=== PATIENT | female | born 1950 | race Caucasian/White ===

== ENCOUNTER 2017-03-27 14:30 | Outpatient (CLI) | payer MEDICARE, BC ==
--- NOTE | 2017-03-27 15:51 | XRAY Report ---
TWO-VIEW CHEST: 03/27/2017 CLINICAL INDICATION: Cough. FINDINGS: Frontal and lateral views of the chest demonstrate a normal cardiac silhouette. There is a moderate hiatal hernia present. The lungs are clear. No effusion or pneumothorax is present. IMPRESSION: MODERATE HIATAL HERNIA. NO EVIDENCE OF ACUTE CARDIOPULMONARY DISEASE. JOB #: [id number] EXT JOB #:[id number]
--- NOTE | 2017-03-27 15:52 | XRAY Report ---
THREE-VIEW PARANASAL SINUSES: 03/27/2017 CLINICAL INDICATION: Cough. FINDINGS: AP, Elliott, lateral views of the paranasal sinuses demonstrate no evidence of mucosal thic kening or air-fluid levels. No osseous destruction is seen. The septum is midline. IMPRESSION: NO EVIDENCE OF SINUS DISEASE. JOB #: [id number] EXT JOB #:[id number]
== END 2017-03-27 14:31 | disposition home or self-care (01) ==
LOC: DI.S 14:30
PROVIDERS: ATTEND Internal Medicine
DX: R51 Headache (principal); R05 Cough; R53.83 Other fatigue; K44.9 Diaphragmatic hernia without obstruction or gangrene
CPT/HCPCS: 70220; 71020

== ENCOUNTER → 2017-03-27 | Outpatient (CLI) | payer BC, MEDICARE ==
[2017-03-27 19:21] LABS: BASOPHILS % (AUTO) 0.9 %; EOSINOPHILS # (AUTO) 0.2 10^3/uL (0.0-0.7); EOSINOPHILS % (AUTO) 4.6 %; HCT - HEMATOCRIT 42.8 % (37.0-47.0); HGB - HEMOGLOBIN 14.1 g/dL (12.0-16.0); LYMPHOCYTES # (AUTO) 1.1 10^3/uL (1.5-3.5); LYMPHOCYTES % (AUTO) 21.7 %; MEAN CORPUSCULAR HEMOGLOBIN 29.2 pg (27.0-31.0); MEAN CORPUSCULAR VOLUME 88.4 fL (81.0-99.0); MEAN PLATELET VOLUME 8.4 fL (7.9-10.8); MONOCYTES # (AUTO) 0.4 10^3/uL (0.0-1.0); NEUTROPHILS # (AUTO) 3.4 10^3/uL (1.5-6.6); NEUTROPHILS % (AUTO) 65.8 %; NUCLEATED RED BLOOD CELLS AUTO 0.2 /100WBC; RED BLOOD COUNT 4.84 10^6/uL (4.20-5.40); RED CELL DISTRIBUTION WIDTH 15.1 % (12.0-15.0); UNCORRECTED WHITE BLOOD COUNT 5.1 x10^3/uL; WHITE BLOOD COUNT 5.1 x10^3/uL (4.8-10.8)
[2017-03-27 20:10] LABS: ALBUMIN/GLOBULIN RATIO 1.5 (1.0-2.2); BILIRUBIN,TOTAL 0.5 mg/dL (0.2-1.0); BUN - BLOOD UREA NITROGEN 18 mg/dL (6-20); CALCIUM 8.9 mg/dL (8.5-10.3); CARBON DIOXIDE - CO2 24 mmol/L (21-32); CHLORIDE 108 mmol/L (101-111); CREATININE 0.8 mg/dL (0.4-1.0); GFR - MDRD 72 (>89); GLUCOSE 83 mg/dL (70-100); POTASSIUM 4.3 mmol/L (3.5-5.0); SODIUM 139 mmol/L (135-145); TOTAL PROTEIN 6.9 g/dL (6.7-8.2)
[2017-03-31 21:06] LABS: 18 KD (IGG) BAND NON-REACTIVE (()); 23 KD (IGG) BAND NON-REACTIVE (()); 28 KD (IGG) BAND NON-REACTIVE (()); 30 KD (IGG) BAND NON-REACTIVE (()); 39 KD (IGG) BAND NON-REACTIVE (()); 41 KD (IGG) BAND REACTIVE (()); 41 KD (IGM) BLOT NON-REACTIVE (()); 45 KD (IGG) BAND NON-REACTIVE (()); 58 KD (IGG) BAND NON-REACTIVE (()); 66 KD (IGG) BAND NON-REACTIVE (()); 93 KD (IGG) BAND NON-REACTIVE (())
== END ==
LOC: LAB.F 08:00
PROVIDERS: ATTEND Internal Medicine
DX: R51 Headache (principal); R53.83 Other fatigue; R05 Cough; T14.8 Other injury of unspecified body region; A69.20 Lyme disease, unspecified
CPT/HCPCS: 36415; 80053; 84443; 85025; 86140; 86617

== ENCOUNTER 2017-07-06 15:40 | Emergency (ER) | payer MEDICARE, BC ==
--- NOTE | 2017-07-06 16:41 | XRAY Preliminary Report ---
Exam: XR CHEST 2 VIEW PA/LAT IMPRESSION: No acute intrathoracic plain film abnormality. [facility] SITE ID: [id number]
--- NOTE | 2017-07-06 16:43 | XRAY Report ---
EXAM: CHEST RADIOGRAPHY EXAM DATE: 07/06/2017 04:23 PM. CLINICAL HISTORY: Rib pain COMPARISON: None. TECHNIQUE: 2 views. FINDINGS: Lungs/Pleura: No focal opacities evident. No pleural effusion. No pneumothorax. Normal volumes. Mediastinum: Normal heart size. There is thoracic aortic tortuosity. Other: There is a small hiatal hernia. IMPRESSION: No acute intrathoracic plain film abnormality. [facility] Referring Provider Line: [phone] SITE ID: [id number]
[2017-07-06 17:02] VITALS: BP 123/62
[2017-07-06] MEDS ORDERED: oxyCOD/ACETAMIN 5 MG/325 MG TABLET PO STA (17:24)
--- NOTE | 2017-07-06 17:28 | ED Physician Documentation ---
History of Present Illness - Stated complaint Stated Complaint: GLF/RIB PX - Chief complaint Chief Complaint: General - History obtained from History obtained from: Patient, Family - History of Present Illness Timing: How many days ago (3) Pain level max: 9 Pain level now: 8 Improved by: Rest Worsened by: Movement - Additonal information Additional information: Patient is a 66-year-old female who tripped falling down the stairs 2 days ago, landed on her left side on the hardwood floor. Now complains of increasing pain. Called her PCP and was told to come to the emergency department for evaluation. She states she is taking Motrin and Tylenol at home for the pain, but this is not helping the pain. No shortness of breath, but does have pain with breathing. No head injury. No loss of consciousness. No neck or back pain. Review of Systems Constitutional: denies: Fever, Chills Ears: denies: Ear pain Nose: denies: Rhinorrhea / runny nose, Congestion Throat: denies: Sore throat Cardiac: denies: Chest pain / pressure Respiratory: denies: Dyspnea, Cough, Hemoptysis, Wheezing GI: denies: Abdominal Pain, Nausea, Vomiting, Diarrhea Skin: denies: Rash Musculoskeletal: denies: Neck pain, Back pain Neurologic: denies: Headache PD PAST MEDICAL HISTORY - Past Medical History Past Medical History: Yes GI: GERD, Diverticulitis Musculoskeletal: Osteoarthritis - Past Surgical History Past Surgical History: Yes General: Gastric surgery - Present Medications Home Medications: Ambulatory Orders Medication Instructions Recorded Confirmed Bupropion HCl [Bupropion Xl] 150 mg PO 10/19/13 10/19/13 Esomeprazole Magnesium [Nexium] 40 mg PO DAILY 10/19/13 07/06/17 FLUoxetine [PROzac] 40 mg PO DAILY 10/19/13 07/06/17 HYDROcod/ACETAM 5/325 [Vicodin 1 - 2 ea PO Q6H PRN #15 tablet 10/19/13 07/06/17 5/325] Levothyroxine Sodium [Synthroid] 112 mcg PO 10/19/13 10/19/13 Ondansetron Odt [Zofran] 4 mg TL Q6H PRN #15 tablet 10/19/13 07/06/17 cephALEXin [Keflex] 500 mg PO Q6H #28 capsule 10/19/13 07/06/17 metroNIDAZOLE [Flagyl] 500 mg PO BID 7 Days tablet 10/19/13 07/06/17 Oxycodone HCl/Acetaminophen 1 - 2 each PO Q6H PRN #14 tablet 07/06/17 [Percocet 5-325 mg Tablet] - Allergies Allergies/Adverse Reactions: Allergies Allergy/AdvReac Type Severity Reaction Status Date / Time No Known Drug Allergies Allergy Verified 10/19/13 12:30 - Social History Does the pt smoke?: No Smoking Status: Never smoker Does the pt drink ETOH?: No Does the pt have substance abuse?: No - Immunizations Immunizations are current?: Yes - POLST Patient has POLST: No POLST Status: Full Code PD ED PE NORMAL - Vitals Vital signs reviewed: Yes - General General: Alert and oriented X 3, No acute distress, Well developed/nourished - HEENT HEENT: Atraumatic, PERRL, EOMI, Ears normal, Moist mucous membranes - Neck Neck: Supple, no meningeal sign, No bony TTP - Cardiac Cardiac: RRR, Strong equal pulses - Respiratory Respiratory: No respiratory distress, Clear bilaterally - Abdomen Abdomen: Soft, Non tender, Non distended - Back Back: No spinal TTP - Derm Derm: Warm and dry - Extremities Extremities: No deformity, No tenderness to palpate, Normal ROM s pain - Neuro Neuro: Alert and oriented X 3, [address] 2-12 intact, No motor deficit, No sensory deficit, Normal speech Eye Opening: Spontaneous Motor: Obeys Commands Verbal: Oriented GCS Score: 15 - Psych Psych: Normal mood, Normal affect - Free text exam Free text exam: Tender to palpation along the left lateral ribs, midaxillary line. No crepitus. No ecchymosis. Diffuse tenderness. Results - Vitals Vitals: Vital Signs - 24 hr 07/06/17 07/06/17 15:44 16:59 Temperature 36.3 C L Heart Rate 75 72 Respiratory 20 18 Rate Blood Pressure 155/81 H 123/62 O2 Saturation 100 97 Oxygen O2 Source Room air - Rads (name of study) cxr Radiology: Prelim report reviewed, EMP read contemporaneously, See rad report ( normal) PD MEDICAL DECISION MAKING - ED course Complexity details: reviewed results, re-evaluated patient, considered differential, d/w patient ED course: Patient is a 66-year-old female who presents to the emergency department with left-sided trunk pain after falling. No acute findings on x-ray. She is well- appearing, nontoxic. Afebrile. Will trial on pain medications for home and follow-up with her doctor. No pneumothorax. No hemothorax. No intra- abdominal injury. No neck or back pain. No head injury. Patient counseled regarding signs and symptoms for which I believe and urgent re-evaluation would be necessary. Patient with good understanding of and agreement to plan and is comfortable going home at this time This document was made in part using voice recognition software. While efforts are made to proofread this document, sound alike and grammatical errors may occur. Departure - Departure Disposition: 01 Home, Self Care Clinical Impression: Rib contusion Qualifiers: Encounter type: initial encounter Laterality: left Qualified Code(s): S20.212A - Contusion of left front wall of thorax, initial encounter Condition: Good Instructions: ED Contusion Vs Minor Fx Rib Follow-Up: BELTRAN CHAPIN MD [Primary Care Provider] - Within 3 Days Prescriptions: Oxycodone HCl/Acetaminophen [Percocet 5-325 mg Tablet] 1 - 2 each PO Q6H PRN # 14 tablet PRN Reason: pain Comments: Use the Percocet as needed for pain. Return if you worsen. Rib fractures can take several weeks to heal if indeed there are fractures that cannot be seen on x-ray today. Follow-up with your doctor for further care. Do not drink alcohol or drive while on narcotic pain medicine. Note that many narcotic pain relievers also contain tylenol/acetaminophen. Please ensure that your total dose of acetaminophen from all sources does not exceed 3 grams (3000mg) per day. You may constipated on this medication, take a stool softener such as "Colace" twice a day while you are on it. Also recommend a yxht-nov-zvebhhp laxative such as senna or MiraLAX any day that you do not have a bowel movement. If you received narcotic pain medication in the emergency department, do not drive or operate machinery for the next 24 hours Discharge Date/Time: 07/06/17 17:30
[2017-07-06] MEDS ORDERED: oxyCOD/ACETAMIN 5 MG/325 MG TABLET PO ONE (17:39)
== END 2017-07-06 17:30 | disposition home or self-care (01) ==
LOC: ED 15:40
DX: S20.212A Contusion of left front wall of thorax, initial encounter (principal); W10.9XXA Fall (on) (from) unspecified stairs and steps, initial encounter; Y92.018 Other place in single-family (private) house as the place of occurrence of the external cause; K21.9 Gastro-esophageal reflux disease without esophagitis; M19.90 Unspecified osteoarthritis, unspecified site; Z98.84 Bariatric surgery status
CPT/HCPCS: 71020; 99283

== ENCOUNTER 2018-11-03 10:47 | Outpatient (CLI) | payer MEDICARE, BC | END 2018-11-03 10:48 | disposition home or self-care (01) | LOC: LAB 10:47 | PROVIDERS: ATTEND Internal Medicine | DX: Z53.9 Procedure and treatment not carried out, unspecified reason (principal) ==

== ENCOUNTER 2018-11-04 09:25 | Outpatient (CLI) | payer MEDICARE, BC ==
[2018-11-04 09:59] LABS: CHOL/HDL RATIO 2.7 (<4.4); CHOLESTEROL 173 mg/dL; HDL CHOLESTEROL 65 mg/dL; LDL CHOLESTEROL,CALCULATED 88 mg/dL; LDL/HDL RATIO 1.4 (<4.4); VLDL CHOLESTEROL 20 mg/dL
[2018-11-05 16:57] LABS: ALT ALANINE AMINOTRANSFERASE 20 IU/L (10-60)
== END 2018-11-04 09:26 | disposition home or self-care (01) ==
LOC: LAB 09:25
PROVIDERS: ATTEND Internal Medicine
DX: Z00.00 Encounter for general adult medical examination without abnormal findings (principal); E78.5 Hyperlipidemia, unspecified
CPT/HCPCS: 36415; 80061; 83036; 83721; 84450; 84460

== ENCOUNTER 2022-09-04 14:39 | Outpatient (CLI) | payer MEDICARE | END 2022-09-04 14:40 | disposition critical access hospital (66) | LOC: EMS 14:39 | DX: R10.32 Left lower quadrant pain (principal); R11.0 Nausea; Z91.81 History of falling | CPT/HCPCS: A0425; A0427 ==

== ENCOUNTER 2022-09-04 15:12 | Emergency (ER) | payer BC, MEDICARE ==
[2022-09-04 15:46] LABS: BILIRUBIN,URINE NEGATIVE (NEGATIVE); GLUCOSE, URINE (UA) NEGATIVE (NEGATIVE); KETONES,URINE (UA) NEGATIVE (NEGATIVE); LEUKOCYTE ESTERASE, URINE TRACE (NEGATIVE); NITRITE,URINE NEGATIVE (NEGATIVE); OCCULT BLOOD,URINE NEGATIVE (NEGATIVE); PROTEIN,URINE NEGATIVE (NEGATIVE); UROBILINOGEN,URINE 0.2 (NORMAL) E.U./dL (NORMAL)
[2022-09-04] MEDS ORDERED: MORPHINE 2 MG/ML CARPUJECT IVP STA ×2 (15:47→18:15)
[2022-09-04] MEDS ORDERED: oxyCODONE 5 MG TABLET PO STA (15:47)
[2022-09-04 15:48] LABS: CLARITY,URINE CLEAR (CLEAR)
--- NOTE | 2022-09-04 15:49 | ED Physician Documentation ---
History of Present Illness - Stated complaint Stated Complaint: GLF - Chief complaint Chief Complaint: Resp - History obtained from History obtained from: Patient - History of Present Illness Timing: How many weeks ago (1) Pain level max: 7 Pain level now: 6 - Additonal information Additional information: 71-year-old female presents to the emergency department left-sided rib pain after a ground-level fall 1 week ago. Landed on the stairs. Has had continued pain since that time. Was on her way to see her doctor today when she developed increasing pain, worse with movement and breathing. Took Tylenol without relief. Had nausea today as well. No head injury. Not on blood thinners. Review of Systems Constitutional: denies: Fever, Chills Nose: denies: Rhinorrhea / runny nose, Congestion GI: denies: Vomiting, Diarrhea Skin: denies: Rash Musculoskeletal: denies: Neck pain, Back pain Neurologic: denies: Focal weakness, Numbness, Confused, Headache, Head injury, LOC PD PAST MEDICAL HISTORY - Past Medical History Past Medical History: Yes Cardiovascular: None Respiratory: None Neuro: None Endocrine/Autoimmune: None GI: GERD, Diverticulitis COAL TRAMMER: None : None HEENT: None Psych: None Musculoskeletal: Osteoarthritis Derm: None - Past Surgical History Past Surgical History: Yes General: Gastric surgery - Present Medications Home Medications: Ambulatory Orders Medication Instructions Recorded Confirmed Bupropion HCl [Bupropion Xl] 150 mg PO 10/19/13 10/19/13 Esomeprazole Magnesium [Nexium] 40 mg PO DAILY 10/19/13 07/06/17 FLUoxetine [PROzac] 40 mg PO DAILY 10/19/13 07/06/17 HYDROcod/ACETAM 5/325 [Vicodin 1 - 2 ea PO Q6H PRN #15 tablet 10/19/13 07/06/17 5/325] Levothyroxine Sodium [Synthroid] 112 mcg PO 10/19/13 10/19/13 Ondansetron Odt [Zofran] 4 mg TL Q6H PRN #15 tablet 10/19/13 07/06/17 cephALEXin [Keflex] 500 mg PO Q6H #28 capsule 10/19/13 07/06/17 metroNIDAZOLE [Flagyl] 500 mg PO BID 7 Days tablet 10/19/13 07/06/17 Oxycodone HCl/Acetaminophen 1 - 2 each PO Q6H PRN #14 tablet 07/06/17 [Percocet 5-325 mg Tablet] oxyCODONE [Roxicodone] 5 mg PO Q6H PRN #20 tablet MDD 6 09/04/22 - Allergies Allergies/Adverse Reactions: Allergies Allergy/AdvReac Type Severity Reaction Status Date / Time No Known Drug Allergies Allergy Verified 10/19/13 12:30 - Social History Does the pt smoke?: No Smoking Status: Never smoker Does the pt drink ETOH?: No Does the pt have substance abuse?: No - Immunizations Immunizations are current?: Yes - POLST Patient has POLST: No POLST Status: Full Code PD ED PE NORMAL - Vitals Vital signs reviewed: Yes - General General: Alert and oriented X 3, No acute distress - HEENT HEENT: Atraumatic, PERRL, Ears normal, Moist mucous membranes, Pharynx benign - Neck Neck: Supple, no meningeal sign, No bony TTP - Cardiac Cardiac: RRR, Strong equal pulses - Respiratory Respiratory: No respiratory distress, Clear bilaterally, Other (L sided rib TTP approx 9-12 no crepitus, no ecchymosis) - Abdomen Abdomen: Soft, Non tender, Non distended - Back Back: No CVA TTP, No spinal TTP - Derm Derm: Warm and dry - Extremities Extremities: No edema, No calf tenderness / cord - Neuro Neuro: Alert and oriented X 3, j2ee consultant 2-12 intact, No motor deficit, No sensory deficit, Normal speech Eye Opening: Spontaneous Motor: Obeys Commands Verbal: Oriented GCS Score: 15 - Psych Psych: Normal mood, Normal affect Results - Vitals Vitals: Vital Signs - 24 hr 09/04/22 09/04/22 09/04/22 15:10 15:21 15:40 Temperature 36.6 C Heart Rate 66 Respiratory 20 22 20 Rate Blood Pressure 140/79 H O2 Saturation 100 09/04/22 09/04/22 09/04/22 16:01 16:23 16:50 Temperature Heart Rate 52 L Respiratory 18 16 15 Rate Blood Pressure 144/71 H O2 Saturation 100 09/04/22 18:29 Temperature 36.6 C Heart Rate 63 Respiratory 16 Rate Blood Pressure 122/67 O2 Saturation 99 Oxygen O2 Source Room air - Labs Labs: Laboratory Tests 09/04/22 15:20 Urine Color YELLOW Urine Clarity CLEAR Urine pH 7.0 Ur Specific [place] 1.010 Urine Protein NEGATIVE Urine Glucose (UA) NEGATIVE Urine Ketones NEGATIVE Urine Occult Blood NEGATIVE Urine Nitrite NEGATIVE Urine Bilirubin NEGATIVE Urine Urobilinogen 0.2 (NORMAL) Ur Leukocyte Esterase TRACE H Urine RBC 0-5 Urine WBC 0-3 Ur Squamous Epith Cells FEW Squamous Urine Bacteria Rare Ur Microscopic Review INDICATED Urine Culture Comments INDICATED - Rads (name of study) chest wo Radiology: Final report received, See rad report PD Medical Decision Making - ED course Complexity details: reviewed results, re-evaluated patient, considered differential, d/w patient ED course: 71-year-old female status post, fall about a week ago, injuring the left ribs. No acute findings on CT scan of the chest. No evidence of rib fracture. Possible nondisplaced fractures versus contusions. Pain well controlled in the emergency department. Will prescribe pain medication for home. Patient denies any other injuries. GCS 15. No headache. No changes in mental status. Normal neurological exam. Normal gait. No evidence of pneumothorax or hemothorax. Patient counseled regarding signs and symptoms for which I believe and urgent re-evaluation would be necessary. Patient with good understanding of and agreement to plan and is comfortable going home at this time This document was made in part using voice recognition software. While efforts are made to proofread this document, sound alike and grammatical errors may occur. Departure - Departure Disposition: 01 Home, Self Care Clinical Impression: Rib contusion Qualifiers: Encounter type: initial encounter Laterality: left Qualified Code(s): S20.212A - Contusion of left front wall of thorax, initial encounter Condition: Good Instructions: ED Contusion Rib Follow-Up: your,doctor in 1 week [Other] Prescriptions: oxyCODONE [Roxicodone] 5 mg PO Q6H PRN #20 tablet MDD 6 PRN Reason: pain Comments: Your CT does not show any acute abnormalities today. You appear to have bruised ribs. Your prescriptions were sent to [facility] in [place]. This should improve over the next few weeks. I am prescribing a short course of narcotic pain medication for you. These are potentially dangerous and addictive medications that should be used carefully. These medications may constipate you. Take an hjxq-mjn-ipmfrgi stool softener (docusate) twice daily with plenty of water while taking these medications. If you go 24 hours without a bowel movement, take nebk-mlz-tapiuhp miralax, per package instructions. Do not drink or drive while taking these medications. If you received narcotic or sedating medications while in the emergency department, do not drive for 24 hours. Store this medication in a safe, secure place and out of reach of children. It is a violation of federal law to give or sell this medication to another person or to use in a manner other than prescribed. The ED will not refill narcotic prescriptions, including prescriptions lost or stolen. To dispose of unwanted medications: 1. [facility] [address] in [place] has a medication drop box. They accept prescription medications (in pill form) Thursday through Thursday 9:00 a.m. to 5:00 p.m. 2. The [facility] [employer] accepts prescription medications (in pill form only) for disposal year round. Call for more information. 3. Contact the [facility] for the next [facility] sponsored prescription drug collection event. , [phone], or [phone]; Discharge Date/Time: 09/04/22 18:45
[2022-09-04 15:55] LABS: BACTERIA,URINE Rare /HPF (None Seen); RBC,URINE 0-5 /HPF (0-5); SQUAMOUS EPITHELIAL CELL,UR FEW Squamous (<= Few); WBC,URINE 0-3 /HPF (0-5)
--- NOTE | 2022-09-04 17:27 | CT Report ---
PROCEDURE: CHEST WO INDICATIONS: fall several days ago, L sided rib pain TECHNIQUE: Noncontrast 1mm axial images were acquired from the pulmonary apices to the posterior costophrenic an gles. Axial 5 mm soft tissue kernel reconstructions were performed as well as 8 mm axial MIP and cor onal and sagittal 5 mm reformations. For radiation dose reduction, the following was used: automate d exposure control, adjustment of mA and/or kV according to patient size. COMPARISON: Plain films of the chest dated 07/06/2017 FINDINGS: Image quality: Excellent. Lungs and pleura: No acute air space opacities. No pleural effusions or pneumothorax. Central and peripheral airways are patent and normal in caliber. Mediastinum: Heart size is normal. No pericardial effusion. No mediastinal adenopathy by size crit eria. Thoracic aorta and central pulmonary arteries are normal in size. Esophagus is normal in ethan marcellus. No hiatal hernia. Bones and chest wall: No suspicious bony lesions. No evidence of rib fracture. No vertebral body co mpression fractures. No axillary or supraclavicular adenopathy by size criteria. The thyroid is nor mal in size and there are no incidental findings. Abdomen: Visualized upper abdominal solid organs and bowel loops appear normal in the absence of con trast. IMPRESSION: 1. No acute process. Reviewed by: Ino Stover MD on 09/04/2022 4:54 PM PST Approved by: Ino Stover MD on 09/04/2022 4:54 PM PST Station ID: [id number]
[2022-09-04 18:30] VITALS: BP 122/67
== END 2022-09-04 18:45 | disposition home or self-care (01) ==
LOC: EDUNIT# → ED 15:12
DX: S20.212A Contusion of left front wall of thorax, initial encounter (principal); W18.30XA Fall on same level, unspecified, initial encounter; Y92.9 Unspecified place or not applicable; K21.9 Gastro-esophageal reflux disease without esophagitis; Z79.899 Other long term (current) drug therapy
CPT/HCPCS: 71250; 81001; 87086; 96374; 96376; 99283; 99284; A9270; 81003

== ENCOUNTER 2024-02-12 08:00 | Outpatient (CLI) | payer MEDICARE ==
--- NOTE | 2024-02-12 15:06 | XRAY Report ---
PROCEDURE: Ribs w/PA Chest 3+V RT INDICATIONS: RIGHT FRONT WALL CONTUSION TECHNIQUE: 3 views of the ribs were acquired, along with a single view chest. COMPARISON: Chest 2 views dated 07/06/2017. FINDINGS: Surgical changes and devices: None. Bones and chest wall: No fractures or dislocations. No suspicious bony lesions. Overlying soft tis sues appear unremarkable. Lungs and pleura: No pleural effusions or pneumothorax. Lungs appear clear. Mediastinum: Mediastinal contours appear normal. Heart size is normal. IMPRESSION: No displaced rib fracture or pneumothorax. Reviewed by: Tono Leonardo MD on 02/12/2024 3:05 PM PDT Approved by: Tono Leonardo MD on 02/12/2024 3:05 PM PDT Station ID: [id number]
== END 2024-02-12 23:59 | disposition home or self-care (01) ==
LOC: DI.S 08:00
PROVIDERS: ATTEND Physician Assistant Medical
DX: S20.211A Contusion of right front wall of thorax, initial encounter (principal)